=== PATIENT | male | born 1970 | race Caucasian/White ===

== ENCOUNTER 2021-09-11 10:37 | Observation (INO) ==
[2021-09-11] MEDS ORDERED: SODIUM CHLORIDE 0.9% 1000ML 1,000 ML IV SCH (11:30)
[2021-09-11] MEDS ORDERED: OPTIRAY 320 125ml IV ONE (11:40)
[2021-09-11 11:44] LABS: Basophils # (auto) 0.02 K/uL (0-0.2); Basophils % (auto) 0.3 %; Eosinophils # (auto) 0.28 K/uL (0-0.5); Eosinophils % (auto) 3.9 %; Hematocrit (blood only) 44.5 % (42-52); Hemoglobin 15.8 g/dL (14.0-18.0); Immature Granulocytes # (auto) 0.02 K/uL (0.00-0.02); Immature Granulocytes % (auto) 0.3 %; Lymphocytes # (auto) 2.57 K/uL (1.2-3.4); Lymphocytes % (auto) 35.4 %; Mean Corpuscular Hemoglobin 33.4 pg (25-34); Mean Corpuscular Hgb Conc 35.5 g/dL (32-36); Mean Corpuscular Volume 94.1 fL (80-100); Monocytes # (auto) 0.46 K/uL (0.11-0.59); Monocytes % (auto) 6.3 %; Neutrophils % (auto) 53.8 %; Platelet Count 331 K/uL (130-400); RDW Coefficient of Variation 12.5 % (11.5-14.5); RDW Standard Deviation 43.5 fL (36.4-46.3); Red Blood Count 4.73 M/uL (4.7-6.1); White Blood Count 7.25 K/uL (4.8-10.8)
--- NOTE | 2021-09-11 11:44 | CT Scan Report ---
CT head/brain wo con CLINICAL HISTORY: Stroke Like Symptoms . Dizziness and left-sided weakness COMPARISON STUDY: No previous studies for comparison. CT DOSE: 1746.46 mGy.cm TECHNIQUE: Standard CT of the Brain was performed without IV contrast. A dose lowering technique was utilized adhering to the principles of ALARA. FINDINGS: Extraaxial space: There is no evidence for subdural hematoma. There are no extra-axial fluid collecti ons. Ventricles and cisterns: The ventricles are normal in size and configuration. There is no evidence f or midline shift or mass effect. Parenchyma: There is no subarachnoid or intraparenchymal hemorrhage. There is no evidence for an acu te infarct or cerebral edema. There is homogeneous attenuation of the brain parenchyma. There are no gross mass lesions. Osseous structures: There is no evidence for an acute fracture. The visualized paranasal sinuses are clear. The mastoid air cells are clear bilaterally. Soft tissues: There is no evidence for focal soft tissue swelling. IMPRESSION: No acute intracerebral pathology. ACT 112: Negative or not required by law. Electronically signed by: Paras Bass M.D. 09/11/2021 11:43 AM
--- NOTE | 2021-09-11 11:52 | Emergency Department Note ---
Impression & Plan TIA (transient ischemic attack), Abnormal EKG ED Provider Note NAME: KAREN MENJIVAR AGE: 50 SEX: M : 1970 ARRIVES VIA: Ambulance INFORMANT: Patient, the patient's significant other ED PROVIDER(S): Ho Calvo DO CHIEF COMPLAINT: Left-sided numbness HPI: The patient is a 50-year-old male who presented to the emergency department for an evaluation of neurologic symptoms. The patient arrived via ALS. The patient states that he was in his normal state of health this morning. He went to work at approximately 6 AM. He works at [employer]. The patient states that he did not feel right initially started with some dizziness and just not feeling well. He started noticing that his left upper extremity did not feel right he states it was a tingling sensation. He started noticing this into his left shoulder as well as into his chest. He also noticed a metallic taste in his mouth. He then started noticing that his left lower extremity was numb as well. He denies having any headaches. He said no fever or cough. He denies having any abdominal pain. He is never had similar symptoms in the past. He initially was starting to drive home but then the symptoms became worse and he called 911. The patient arrived via ALS. The patient does have a history of hypertension. He has been compliant with his outpatient medications. The patient presented with his significant other who also produces part of the history and states his voice seems off and he seems to be confused at times. ROS: See above HPI for pertinent positives & negatives. A total of 10 systems reviewed and were otherwise negative. PAST MEDICAL HISTORY: See Below PAST SURGICAL HISTORY: See Below FAMILY HISTORY: See Below SOCIAL HISTORY: See Below HOME MEDICATIONS: See Below ALLERGIES: See Below VITALS: See Below PHYSICAL EXAMINATION: GENERAL: The patient is awake and alert. He is somewhat anxious appearing. EYES: The conjunctivae are clear. The pupils are round and reactive. EARS, NOSE, MOUTH AND THROAT: The nose is without any evidence of any deformity. NECK: The neck is nontender and supple. RESPIRATORY: Normal respiratory effort is noted there is no evidence of wheezing rhonchi or rales CARDIOVASCULAR: Regular rate and rhythm noted there no murmurs rubs or gallops normal S1 normal S2. GASTROINTESTINAL: The abdomen is soft. Abdomen is nontender. MUSCULOSKELETAL/EXTREMITIES: There is no evidence of gross deformity full range of motion is noted in the hips and shoulders. SKIN: There is no obvious evidence of any rash. There are no petechiae, pallor or cyanosis noted. NEUROLOGIC: Patient is awake alert and oriented x3 strength is symmetric patellar reflexes are 2+ bilaterally. Job Forwarder strength was symmetric. There is no drift in the upper extremities. No facial droop was noted. MEDICAL DECISION MAKING: The patient is a 50-year-old male who presented to the emergency department for an evaluation of strokelike symptoms. The patient was experiencing unilateral neurologic symptoms which were waxing and waning. He also had some dizziness. He had some discomfort or some sensation across the left anterior chest. There is concerned that this could be related to the patient's presentation as well. The patient was made a stroke alert upon arrival. His NIH was low but given his age and his other symptoms he was made a stroke alert. He was not a candidate for thrombolytics as he was outside that window but given the possibility of large vessel occlusion he was evaluated by the [facility] telestroke neurologist. The patient was reevaluated multiple times. His condition continued to improve. He was given aspirin in the emergency department. I discussed patient's laboratory and radiographic studies with him. I also discussed his case with the on-call [facility] hospitalist group. They have agreed to evaluate the patient in the emergency department for further management and disposition. Triage Nursing notes reviewed. Prior medical records reviewed Vital Signs: reviewed and remarkable for no significant abnormalities Differential diagnosis: Infection, dehydration, metabolic abnormality, hypo/hyperglycemia, electrolyte disturbance, anemia, hypoxia, cardiac sources, intracerebral event, toxicologic, neurologic, as well as other pathologies. ER treatment provided: See below Diagnostics interpreted by me: ECG: EKG was obtained in the emergency department. My interpretation is normal sinus rhythm at 91 bpm. There is no ectopy. There is no acute ST segment abnormalities noted. Inferior Q waves were noted. No previous tracing was available. Cardiac Monitoring: An order was placed for continuous cardiac monitoring. The monitor shows a rate of 86 bpm with sinus rhythm. Laboratory studies: As stated above and show below. Imaging studies: See below Consultation(s): 1150: I discussed this case with Dr Patton with [facility] telestroke. I discussed this case with Kitty who is on for the [facility] hospitalist group. They will evaluate the patient in the emergency department. Past Med/Surg History Medical History (Updated 09/11/21 @ 17:44 by Ho Calvo DO) Hypertension Social History Smoking Status: Never smoker Tobacco Type: Smokeless Tobacco (Dip or Chew) Do You Dip or Chew Tobacco: Yes; Tobacco Cessation Education Requested by Patient: No Hx Alcohol Use: Yes Alcohol type: beer Hx Substance Use: No Communication Ability: [employer] Required: No Beliefs That Will Affect Care: None Current Living Situation: Family Feels Safe at Home: Yes Safety Concerns: Feels Safe At This Time Assistive Devices: None Allergies Allergies Allergy/AdvReac Type Severity Reaction Status Date / Time [id number] Reductase AdvReac Intermediate Back Pain Unverified 09/11/21 14:04 Inhibitor Home Meds Home Medications Medication Instructions Recorded Confirmed ergocalciferol (vitamin D2) 1,250 50,000 unit PO 2XWK 09/11/21 09/11/21 mcg (50,000 unit) capsule (Vitamin D2) lisinopril 40 mg tablet 40 mg PO QAM 09/11/21 09/11/21 Results & Data (ED) Vital Signs Vital Signs - 24 hr 09/11/21 10:32 09/11/21 10:56 09/11/21 11:00 Temperature 36.8 C Temperature Source Oral Pulse Rate 98 H 92 H 115 H Pulse Rate from SpO2 Sensor 92 H Pulse Rhythm Regular Pulse Strength Normal Respiratory Rate 16 28 H 19 Respiratory Effort / Characteristics Non-Labored Respiratory Depth Normal Blood Pressure 162/99 H Blood Pressure Mean 120 Pulse Oximetry 97 96 Oxygen Delivery Method Room Air Sepsis Recent Fever Within 48 Hours No Sepsis New/Unexplained Change in Mental Status No Sepsis Action Taken by Nursing No Action Required 09/11/21 11:05 09/11/21 11:10 09/11/21 11:20 Temperature Temperature Source Pulse Rate 102 H 96 H 100 H Pulse Rate from SpO2 Sensor 101 H 97 H 99 H Pulse Rhythm Pulse Strength Respiratory Rate 20 18 27 H Respiratory Effort / Characteristics Respiratory Depth Blood Pressure 162/99 H Blood Pressure Mean 120 Pulse Oximetry 96 95 98 Oxygen Delivery Method Sepsis Recent Fever Within 48 Hours Sepsis New/Unexplained Change in Mental Status Sepsis Action Taken by Nursing 09/11/21 11:42 09/11/21 11:43 09/11/21 11:50 Temperature Temperature Source Pulse Rate 102 H 91 H 102 H Pulse Rate from SpO2 Sensor 89 100 H Pulse Rhythm Pulse Strength Respiratory Rate 11 L 23 17 Respiratory Effort / Characteristics Respiratory Depth Blood Pressure 169/92 H Blood Pressure Mean 117 Pulse Oximetry 96 96 Oxygen Delivery Method Sepsis Recent Fever Within 48 Hours Sepsis New/Unexplained Change in Mental Status Sepsis Action Taken by Nursing 09/11/21 12:00 09/11/21 12:10 09/11/21 12:20 Temperature Temperature Source Pulse Rate 90 95 H 88 Pulse Rate from SpO2 Sensor 89 95 H 91 H Pulse Rhythm Pulse Strength Respiratory Rate 20 28 H 20 Respiratory Effort / Characteristics Respiratory Depth Blood Pressure 144/90 H Blood Pressure Mean 108 Pulse Oximetry 96 96 96 Oxygen Delivery Method Sepsis Recent Fever Within 48 Hours Sepsis New/Unexplained Change in Mental Status Sepsis Action Taken by Nursing 09/11/21 12:30 09/11/21 12:40 09/11/21 12:50 Temperature Temperature Source Pulse Rate 99 H 93 H 91 H Pulse Rate from SpO2 Sensor 100 H 92 H 92 H Pulse Rhythm Pulse Strength Respiratory Rate 29 H 29 H 27 H Respiratory Effort / Characteristics Respiratory Depth Blood Pressure 120/98 Blood Pressure Mean 105 Pulse Oximetry 97 95 96 Oxygen Delivery Method Sepsis Recent Fever Within 48 Hours Sepsis New/Unexplained Change in Mental Status Sepsis Action Taken by Nursing 09/11/21 13:00 09/11/21 13:10 09/11/21 13:20 Temperature Temperature Source Pulse Rate 97 H 88 95 H Pulse Rate from SpO2 Sensor 96 H 89 94 H Pulse Rhythm Pulse Strength Respiratory Rate 16 18 31 H Respiratory Effort / Characteristics Respiratory Depth Blood Pressure 120/89 Blood Pressure Mean 99 Pulse Oximetry 97 96 95 Oxygen Delivery Method Sepsis Recent Fever Within 48 Hours Sepsis New/Unexplained Change in Mental Status Sepsis Action Taken by [facility] Medications Current Medication List: was personally reviewed by me Laboratory Data Attestation: I reviewed the patient's lab results. Result diagrams: 09/11/21 10:56 09/11/21 10:56 Lab Results 09/11/21 09/11/21 09/11/21 Range/Units 10:56 10:56 10:56 WBC 7.25 (4.8-10.8) K/uL RBC 4.73 (4.7-6.1) M/uL Hgb 15.8 (14.0-18.0) g/dL Hct 44.5 (42-52) % MCV 94.1 (80-100) fL MCH 33.4 (25-34) pg MCHC 35.5 (32-36) g/dL RDW Std Deviation 43.5 (36.4-46.3) fL RDW Coeff of Gerardo 12.5 (11.5-14.5) % Plt Count 331 (130-400) K/uL MPV 10.0 (7.4-10.4) fL Immature Gran % (Auto) 0.3 % Neut % (Auto) 53.8 % Lymph % (Auto) 35.4 % Rapides % (Auto) 6.3 % Eos % (Auto) 3.9 % Baso % (Auto) 0.3 % Neut # (Auto) 3.90 (1.4-6.5) K/uL Lymph # (Auto) 2.57 (1.2-3.4) K/uL Rapides # (Auto) 0.46 (0.11-0.59) K/uL Eos # (Auto) 0.28 (0-0.5) K/uL Baso # (Auto) 0.02 (0-0.2) K/uL Immature Gran # (Auto) 0.02 (0.00-0.02) K/uL PT 10.1 (9.0-12.0) Seconds INR 1.0 (0.9-1.1) APTT 26.0 (21.0-31.0) Seconds PTT Ratio 1.0 Sodium 136 (136-145) mmol/L Potassium 3.8 (3.5-5.1) mmol/L Chloride 100 (98-107) mmol/L Carbon Dioxide 24 (21-32) mmol/L Anion Gap 12 H (3-11) BUN 15 (6-23) mg/dl Creatinine 0.93 (0.6-1.4) mg/dl Est Cr Clr Drug Dosing Not Reportable Est GFR ( Amer) 110.6 ml/min Est GFR (Non-Af Amer) 95.4 ml/min BUN/Creatinine Ratio 16.1 (10-20) Glucose 116 H (70-99(Fasting)) mg/dl Calcium 9.6 (8.5-10.1) mg/dl Magnesium 1.7 (1.7-2.4) mg/dl Total Bilirubin 0.5 (0.2-1.0) mg/dl AST 19 (13-39) U/L ALT 33 (7-52) U/L Alkaline Phosphatase 57 (34-104) U/L Troponin I < 0.03 (0-0.04) ng/ml Total Protein 7.7 (6.0-8.3) gm/dl Albumin 4.7 (3.4-5.0) gm/dl Globulin 3.0 (2.5-4.0) gm/dl Albumin/Globulin Ratio 1.6 (0.9-2) SARS-CoV-2, RNA, NAAT (NEGATIVE) 09/11/21 Range/Units 13:11 WBC (4.8-10.8) K/uL RBC (4.7-6.1) M/uL Hgb (14.0-18.0) g/dL Hct (42-52) % MCV (80-100) fL MCH (25-34) pg MCHC (32-36) g/dL RDW Std Deviation (36.4-46.3) fL RDW Coeff of Gerardo (11.5-14.5) % Plt Count (130-400) K/uL MPV (7.4-10.4) fL Immature Gran % (Auto) % Neut % (Auto) % Lymph % (Auto) % Rapides % (Auto) % Eos % (Auto) % Baso % (Auto) % Neut # (Auto) (1.4-6.5) K/uL Lymph # (Auto) (1.2-3.4) K/uL Rapides # (Auto) (0.11-0.59) K/uL Eos # (Auto) (0-0.5) K/uL Baso # (Auto) (0-0.2) K/uL Immature Gran # (Auto) (0.00-0.02) K/uL PT (9.0-12.0) Seconds INR (0.9-1.1) APTT (21.0-31.0) Seconds PTT Ratio Sodium (136-145) mmol/L Potassium (3.5-5.1) mmol/L Chloride (98-107) mmol/L Carbon Dioxide (21-32) mmol/L Anion Gap (3-11) BUN (6-23) mg/dl Creatinine (0.6-1.4) mg/dl Est Cr Clr Drug Dosing Est GFR ( Amer) ml/min Est GFR (Non-Af Amer) ml/min BUN/Creatinine Ratio (10-20) Glucose (70-99(Fasting)) mg/dl Calcium (8.5-10.1) mg/dl Magnesium (1.7-2.4) mg/dl Total Bilirubin (0.2-1.0) mg/dl AST (13-39) U/L ALT (7-52) U/L Alkaline Phosphatase (34-104) U/L Troponin I (0-0.04) ng/ml Total Protein (6.0-8.3) gm/dl Albumin (3.4-5.0) gm/dl Globulin (2.5-4.0) gm/dl Albumin/Globulin Ratio (0.9-2) SARS-CoV-2, RNA, NAAT NEGATIVE (NEGATIVE) Administered Medications Discontinued Medications Aspirin (Aspirin Chew 324 Mg) 324 mg PO NOW STA Stop: 09/11/21 13:02 Last Admin: 09/11/21 13:19 Dose: 324 mg Documented by: [id number] Sodium Chloride (Nss 1000ml) 1,000 mls @ 50 mls/hr IV .Q20H EZEQUIEL Stop: 10/11/21 11:29 Last Infusion: 09/11/21 16:17 Dose: 0 mls/hr Documented by: [id number] Admin: 09/11/21 11:56 Dose: 50 mls/hr Documented by: [id number] Ioversol (Optiray 320 125ml) 120 ml IV ONCE ONE Stop: 09/11/21 11:41 Last Admin: 09/11/21 11:34 Dose: 120 ml Documented by: [id number] Imaging Data Radiologist's Impression: Chest X-Ray 09/11/21 11:23 XR chest 1V portable CLINICAL HISTORY: Stroke Like Symptoms. Dizziness. Evaluate cardiopulmonary status COMPARISON STUDY: No previous studies for comparison. TECHNIQUE: 1 view of the chest FINDINGS: Single frontal view of the chest demonstrates the cardiomediastinal silhouette to be within normal limits. The lungs are clear of alveolar opacities. There is no evidence for pleural effusion. There is no evidence for vascular congestion. There is no acute osseous pathology. IMPRESSION: 1. No acute cardiopulmonary disease. ACT 112: Negative or not required by law. Electronically signed by: Paras Bass M.D. 09/11/2021 11:[address] 09/11/21 11:23 CT head/brain wo con CLINICAL HISTORY: Stroke Like Symptoms . Dizziness and left-sided weakness COMPARISON STUDY: No previous studies for comparison. CT DOSE: 1746.46 mGy.cm TECHNIQUE: Standard CT of the Brain was performed without IV contrast. A dose lowering technique was utilized adhering to the principles of ALARA. FINDINGS: Extraaxial space: There is no evidence for subdural hematoma. There are no extra-axial fluid collections. Ventricles and cisterns: The ventricles are normal in size and configuration. There is no evidence for midline shift or mass effect. Parenchyma: There is no subarachnoid or intraparenchymal hemorrhage. There is no evidence for an acute infarct or cerebral edema. There is homogeneous attenuation of the brain parenchyma. There are no gross mass lesions. Osseous structures: There is no evidence for an acute fracture. The visualized paranasal sinuses are clear. The mastoid air cells are clear bilaterally. Soft tissues: There is no evidence for focal soft tissue swelling. IMPRESSION: No acute intracerebral pathology. ACT 112: Negative or not required by law. Electronically signed by: Paras Bass M.D. 09/11/2021 11:43 AM Head CTA 09/11/21 11:23 CT angio head w con, CT angio neck with con CLINICAL HISTORY: Stroke Like Symptoms TECHNIQUE: CT angiography of the head and neck was performed following intravenous administration of iodinated contrast. Coronal and sagittal MIPS were obtained from the axial data set and were submitted for review. Automated dose lowering techniques and/or adjustment according to patient size were utilized for this examination. All measurements were calculated based on NASCET criteria. Comparison: Comparison is made to CT head 07/11/2022 FINDINGS: CT head: There is no acute intracranial hemorrhage or evidence of acute territorial infarction. No shift of the midline structures, mass effect, or extra-axial abnormalities are shown. Lungs and soft tissues are unremarkable. CTA Neck: A 3 vessel aortic arch is shown. There is no significant atherosclerotic plaque in the aortic arch or the origins of the innominate, left common carotid, and left subclavian arteries. The common carotid, external carotid, cervical segments of the internal carotid arteries, and the cervical segments of the vertebral arteries are patent without hemodynamically significant stenosis. The left vertebral artery is dominant. CTA Head: The anterior and posterior cerebral circulations are patent. No hemodynamically significant stenosis, aneurysm, dissection, or arteriovenous malformation is shown. Atherosclerotic disease is noted. IMPRESSION: 1. No acute intracranial hemorrhage, evidence of acute territorial infarction, or other acute intracranial disease process. 2. No occlusion, hemodynamically significant stenosis, aneurysm, dissection, or arteriovenous malformation in the major intracranial arteries. 3. No occlusion, hemodynamically significant stenosis, or dissection in the major cervical arteries. Assessment of stenosis of the internal carotid arteries is based on NASCET criteria. ACT 112: Negative or not required by law. Electronically signed by: Juan Carlos Winter M.D. 09/11/2021 11:56 AM Neck CTA 09/11/21 11:23 CT angio head w con, CT angio neck with con CLINICAL HISTORY: Stroke Like Symptoms TECHNIQUE: CT angiography of the head and neck was performed following intravenous administration of iodinated contrast. Coronal and sagittal MIPS were obtained from the axial data set and were submitted for review. Automated dose lowering techniques and/or adjustment according to patient size were utilized for this examination. All measurements were calculated based on NASCET criteria. Comparison: Comparison is made to CT head 07/11/2022 FINDINGS: CT head: There is no acute intracranial hemorrhage or evidence of acute territorial infarction. No shift of the midline structures, mass effect, or extra-axial abnormalities are shown. Lungs and soft tissues are unremarkable. CTA Neck: A 3 vessel aortic arch is shown. There is no significant atherosclerotic plaque in the aortic arch or the origins of the innominate, left common carotid, and left subclavian arteries. The common carotid, external carotid, cervical segments of the internal carotid arteries, and the cervical segments of the vertebral arteries are patent without hemodynamically significant stenosis. The left vertebral artery is dominant. CTA Head: The anterior and posterior cerebral circulations are patent. No hemodynamically significant stenosis, aneurysm, dissection, or arteriovenous malformation is shown. Atherosclerotic disease is noted. IMPRESSION: 1. No acute intracranial hemorrhage, evidence of acute territorial infarction, or other acute intracranial disease process. 2. No occlusion, hemodynamically significant stenosis, aneurysm, dissection, or arteriovenous malformation in the major intracranial arteries. 3. No occlusion, hemodynamically significant stenosis, or dissection in the major cervical arteries. Assessment of stenosis of the internal carotid arteries is based on NASCET criteria. ACT 112: Negative or not required by law. Electronically signed by: Juan Carlos Winter M.D. 09/11/2021 11:56 AM Chest CTA 09/11/21 11:25 CT angio chest PE protocol CLINICAL HISTORY: Syncopal episode with lightheadedness and dizziness. Evaluate for pulmonary embolus. COMPARISON STUDY: None CT DOSE: TECHNIQUE: CT Angio of the chest was performed.followed by image post processing with coronal, and sagittal MIP reformats. Contrast Volume: Optiray 320, 120 ml FINDINGS: Vasculature: There is homogeneous perfusion of the pulmonary vasculature bilaterally. No intraluminal filling defects or evidence for pulmonary embolus is seen. Airway: The airway is clear. No endobronchial lesion is identified. Lungs: The lungs are clear of acute alveolar opacities, air bronchograms or pulmonary nodules. Pleura: There is no evidence for pleural effusion. There is no evidence for pneumothorax. Mediastinum: There is no evidence for pathologic adenopathy. The heart size is within normal limits. The thoracic aorta is within normal limits. There is no evidence for pericardial effusion. Upper abdomen:The adrenal glands are normal bilaterally. Osseous structures: There is no acute osseous pathology. Impression: 1. No CTA evidence for pulmonary embolus. 2. No acute chest disease. ACT 112: Negative or not required by law. Electronically signed by: Paras Bass M.D. 09/11/2021 11:51 AM Discharge Plan Visit Data Chief Complaint: Syncope (Near Syncope) Stated Complaint: DIZZINESS, TINGLING IN LEFT ARM ED Provider: Ho Calvo Discharge Problem: TIA (transient ischemic attack), Abnormal EKG Patient Disposition: Admitted As Inpatient Discharge Instructions Interventions: ED Discharge Assessment Last Done: 09/11/21 14:51
[2021-09-11 11:55] LABS: Prothrombin Time 10.1 Seconds (9.0-12.0)
[2021-09-11 11:56] LABS: Troponin I < 0.03 ng/ml (0-0.04)
--- NOTE | 2021-09-11 11:58 | CT Scan Report ---
CT angio head w con, CT angio neck with con CLINICAL HISTORY: Stroke Like Symptoms TECHNIQUE: CT angiography of the head and neck was performed following intravenous administration of iodinated contrast. Coronal and sagittal MIPS were obtained from the axial data set and were submitte d for review. Automated dose lowering techniques and/or adjustment according to patient size were ut ilized for this examination. All measurements were calculated based on NASCET criteria. Comparison: Comparison is made to CT head 07/11/2022 FINDINGS: CT head: There is no acute intracranial hemorrhage or evidence of acute territorial infarction. No sh ift of the midline structures, mass effect, or extra-axial abnormalities are shown. Lungs and soft tissues are unremarkable. CTA Neck: A 3 vessel aortic arch is shown. There is no significant atherosclerotic plaque in the aor tic arch or the origins of the innominate, left common carotid, and left subclavian arteries. The c ommon carotid, external carotid, cervical segments of the internal carotid arteries, and the cervical segments of the vertebral arteries are patent without hemodynamically significant stenosis. The left vertebral artery is dominant. CTA Head: The anterior and posterior cerebral circulations are patent. No hemodynamically significan t stenosis, aneurysm, dissection, or arteriovenous malformation is shown. Atherosclerotic disease is noted. IMPRESSION: 1. No acute intracranial hemorrhage, evidence of acute territorial infarction, or other acute intrac ranial disease process. 2. No occlusion, hemodynamically significant stenosis, aneurysm, dissection, or arteriovenous malfor mation in the major intracranial arteries. 3. No occlusion, hemodynamically significant stenosis, or dissection in the major cervical arteries. Assessment of stenosis of the internal carotid arteries is based on NASCET criteria. ACT 112: Negative or not required by law. Electronically signed by: Juan Carlos Winter M.D. 09/11/2021 11:56 AM
[2021-09-11 11:59] LABS: Alanine Aminotransferase 33 U/L (7-52); Albumin Globulin Ratio 1.6 (0.9-2); Albumin Level 4.7 gm/dl (3.4-5.0); Alkaline Phosphatase 57 U/L (34-104); Anion Gap 12 (3-11); Aspartate Aminotransferase 19 U/L (13-39); BUN Creatinine Ratio 16.1 (10-20); Bilirubin,Total 0.5 mg/dl (0.2-1.0); Blood Urea Nitrogen 15 mg/dl (6-23); Calcium 9.6 mg/dl (8.5-10.1); Carbon Dioxide 24 mmol/L (21-32); Chloride 100 mmol/L (98-107); Est GFR (African American) 110.6 ml/min; Est GFR (Non-African American) 95.4 ml/min; Glucose 116 mg/dl (70-99(Fasting)); Magnesium 1.7 mg/dl (1.7-2.4); Potassium 3.8 mmol/L (3.5-5.1); Sodium 136 mmol/L (136-145); Total Protein 7.7 gm/dl (6.0-8.3)
[2021-09-11] MEDS ORDERED: ASPIRIN CHEW 324 MG PO STA (13:01)
--- NOTE | 2021-09-11 13:19 | History & Physical Report ---
Date of Service September 11, 2021 Assessment & Plan (1) Left sided numbness: Plan: -Onset of weakness at 0800, left sided numbness/tingling with ? chest pain at 1000 -CT head--> No acute intracranial hemorrhage, evidence of acute territorial infarction, or other acute intracranial disease process. -CTA head, neck--> No occlusion, hemodynamically significant stenosis, aneurysm, dissection, or arteriovenous malformation in the major intracranial arteries, or dissection in the major cervical arteries. -MRI ordered. -Placed on observation w/ telemetry. -HbA1c, lipid panel in a.m. -PT, OT, ST to evaluate. -In the setting of ?CVA/TIA, allow permissive HTN w/ SBP < 220, DBP < 110 for first 24 hours. -Avoid hypotension, hypoglycemia. (2) Hypertension: Plan: -On lisinopril 40 mg PO daily, states BP has been high since May 2021, he has been rapidly increased from 5 mg to 40 mg lisinopril, BPs have run 200s/90s at home. -In the setting of ?CVA/TIA, allow permissive HTN w/ SBP < 220, DBP < 110 for first 24 hours. (3) Electrocardiogram abnormal: Plan: -EKG in ED today showed evidence of inferior infarct, age undetermined, otherwise NSR. No previous EKGS are available for comparison. Patient does describe some abnormal chest sensation, difficult for him to determine if this is separate from the numbness/tingling sensation in his left arm and leg. -Initial troponin was negative, trending Q6 2. -Checking lipids, A1c morning labs. -Stress exercise test ordered. -Can consider starting on statin therapy pending lipid panel. -Patient states he has had an echo and what sounds like a cardiac cath ~5 years ago at [facility], although he is not able to elaborate on what the indication was. States this was done as outpatient, he was not hospitalized when this occured. FH is significant for cardiac dz, his mother reportedly had a fatal AR in her 40s. Pt does not know his father's PMH. Plan: -SCDs ordered. History of Present Illness Chief Complaint: left sided numbness Primary Care Provider: Mati Martinez DO Patient is a 50 y/o male with a PMH of HTN who presents today with complaints of weakness and left-sided numbness. Patient notes around 8 AM this morning he felt generally weak all over and somewhat dizzy. He went about his day at work, however the symptoms persisted. He was driving home from work around 10 AM when he noticed his left arm felt heavy, numb, and "different than the rest of the body ". At this time he also felt like his vision was starting to go black, so he pulled over and called 911. Patient was transported via ambulance to [facility] and was evaluated for possible stroke, during ED evaluation he developed left leg numbness and heaviness similar to sensation he felt in his arm. Denies fever/chills, recent illness, palpitations, shortness of breath, PANTOJA, PND, nausea, vomiting, headache, blurred vision, syncopal episodes. Head CT, as well as head and neck CTA were unremarkable. Patient did verbalize resolution of symptoms during course of ED evaluation. Telestroke was consulted, hospitalist service was consulted for evaluation, recommending observation. Additionally, EKG in the ED showed Q waves in the inferior leads indicating an inferior infarct, age undetermined. No previous EKGs are available for comparison. Otherwise NSR. Patient is being treated for high blood pressure, recently had his lisinopril increased to 40 mg due to uncontrolled blood pressure with systolic blood pressures nearly 200 on home readings since May. Has been on statins some years ago, however self D/C'd them due to body myalgias. Also reports of a history of a cardiac work-up, he reports having an echo and what sounds like a cardiac catheterization ~5 years ago at [facility]. Patient is unable to elaborate on why he had these, however he states it was not done during a hospital admission. Allergies Allergy/AdvReac Type Severity Reaction Status Date / Time [id number] Reductase AdvReac Intermediate Back Pain Unverified 09/11/21 14:04 Inhibitor Home Medications Medication Instructions Recorded Confirmed Type ergocalciferol (vitamin D2) 1,250 50,000 unit PO 2XWK 09/11/21 09/11/21 History mcg (50,000 unit) capsule (Vitamin D2) lisinopril 40 mg tablet 40 mg PO QAM 09/11/21 09/11/21 History Past Med/Surg History Medical History (Updated 09/11/21 @ 14:16 by Kitty Bishop PA-C) Hypertension Social History Smoking Status: Never smoker Tobacco Type: Smokeless Tobacco (Dip or Chew) Feels Safe at Home: Yes Review of Systems Review of Systems: Constitutional: No fever, sweats or chills Eyes: No diplopia, no worsening or blurred vision ENT: normal hearing, no trouble swallowing Respiratory: No cough, sputum, dyspnea at rest or on exertion Cardiovascular: ?chest wall numbness/tingling; no tightness or palpitations Abdomen: No pain, nausea, vomiting, diarrhea or constipation Musculoskeletal: No joint pain, calf pain, swelling Neurologic: reports transient LUE and LLE numbness/tingling since this AM; no balance problems Psychiatric: No anxiety or depression Skin: No rash or itch Physical Exam Physical Exam: General: awake, alert, no apparent distress Head: Normocephalic, atraumatic ENT: PERRL, EOMI, no pharyngeal exudate, mucous membranes moist Chest: Clear to auscultation, on room air, no adventitious breath sounds Cardiac: Regular rate and rhythm, no murmur, no JVD, normal peripheral pulses, good capillary refill Abdominal: NABS x 4 quadrants, soft, nontender to palpation, no rebound, guarding or tenderness Extremities: Normal inspection, no peripheral edema or erythema, calfs nontender to palpation Psych: Normal mood and affect Neuro: NIH 0 at time of my exam, around 1400; AAO x 3, strength intact bi laterally and rated 5/5, no motor deficits, speech is clear, no peripheral sensory deficits Skin: no rash or erythema Results & Data Results & Data ([facility]) Vital Signs (Past 12 Hours) Vital Signs Temp Pulse Resp BP Pulse Ox 09/11/21 13:10 88 18 96 09/11/21 13:00 97 H 16 120/89 97 09/11/21 12:50 91 H 27 H 96 09/11/21 12:40 93 H 29 H 95 09/11/21 12:30 99 H 29 H 120/98 97 09/11/21 12:20 88 20 96 09/11/21 12:10 95 H 28 H 96 09/11/21 12:00 90 20 144/90 H 96 09/11/21 11:50 102 H 17 96 09/11/21 11:43 91 H 23 169/92 H 96 09/11/21 11:42 102 H 11 L 09/11/21 11:20 100 H 27 H 98 09/11/21 11:10 96 H 18 95 09/11/21 11:05 102 H 20 162/99 H 96 09/11/21 11:00 115 H 19 09/11/21 10:56 92 H 28 H 96 09/11/21 10:32 36.8 C 98 H 16 162/99 H 97 Laboratory Results Abnormal lab results 09/11/21 Range/Units 10:56 Anion Gap 12 H (3-11) Glucose 116 H (70-99(Fasting)) mg/dl Diagnostic Findings Chest X-Ray 09/11/21 11:23 XR chest 1V portable CLINICAL HISTORY: Stroke Like Symptoms. Dizziness. Evaluate cardiopulmonary status COMPARISON STUDY: No previous studies for comparison. TECHNIQUE: 1 view of the chest FINDINGS: Single frontal view of the chest demonstrates the cardiomediastinal silhouette to be within normal limits. The lungs are clear of alveolar opacities. There is no evidence for pleural effusion. There is no evidence for vascular congestion. There is no acute osseous pathology. IMPRESSION: 1. No acute cardiopulmonary disease. ACT 112: Negative or not required by law. Electronically signed by: Paras Bass M.D. 09/11/2021 11:[address] 09/11/21 11:23 CT head/brain wo con CLINICAL HISTORY: Stroke Like Symptoms . Dizziness and left-sided weakness COMPARISON STUDY: No previous studies for comparison. CT DOSE: 1746.46 mGy.cm TECHNIQUE: Standard CT of the Brain was performed without IV contrast. A dose lowering technique was utilized adhering to the principles of ALARA. FINDINGS: Extraaxial space: There is no evidence for subdural hematoma. There are no extra-axial fluid collections. Ventricles and cisterns: The ventricles are normal in size and configuration. There is no evidence for midline shift or mass effect. Parenchyma: There is no subarachnoid or intraparenchymal hemorrhage. There is no evidence for an acute infarct or cerebral edema. There is homogeneous attenuation of the brain parenchyma. There are no gross mass lesions. Osseous structures: There is no evidence for an acute fracture. The visualized paranasal sinuses are clear. The mastoid air cells are clear bilaterally. Soft tissues: There is no evidence for focal soft tissue swelling. IMPRESSION: No acute intracerebral pathology. ACT 112: Negative or not required by law. Electronically signed by: Paras Bass M.D. 09/11/2021 11:43 AM Head CTA 09/11/21 11:23 CT angio head w con, CT angio neck with con CLINICAL HISTORY: Stroke Like Symptoms TECHNIQUE: CT angiography of the head and neck was performed following intravenous administration of iodinated contrast. Coronal and sagittal MIPS were obtained from the axial data set and were submitted for review. Automated dose lowering techniques and/or adjustment according to patient size were utilized for this examination. All measurements were calculated based on NASCET criteria. Comparison: Comparison is made to CT head 07/11/2022 FINDINGS: CT head: There is no acute intracranial hemorrhage or evidence of acute territorial infarction. No shift of the midline structures, mass effect, or extra-axial abnormalities are shown. Lungs and soft tissues are unremarkable. CTA Neck: A 3 vessel aortic arch is shown. There is no significant atherosclerotic plaque in the aortic arch or the origins of the innominate, left common carotid, and left subclavian arteries. The common carotid, external carotid, cervical segments of the internal carotid arteries, and the cervical segments of the vertebral arteries are patent without hemodynamically significant stenosis. The left vertebral artery is dominant. CTA Head: The anterior and posterior cerebral circulations are patent. No hemodynamically significant stenosis, aneurysm, dissection, or arteriovenous malformation is shown. Atherosclerotic disease is noted. IMPRESSION: 1. No acute intracranial hemorrhage, evidence of acute territorial infarction, or other acute intracranial disease process. 2. No occlusion, hemodynamically significant stenosis, aneurysm, dissection, or arteriovenous malformation in the major intracranial arteries. 3. No occlusion, hemodynamically significant stenosis, or dissection in the major cervical arteries. Assessment of stenosis of the internal carotid arteries is based on NASCET criteria. ACT 112: Negative or not required by law. Electronically signed by: Juan Carlos Winter M.D. 09/11/2021 11:56 AM Neck CTA 09/11/21 11:23 CT angio head w con, CT angio neck with con CLINICAL HISTORY: Stroke Like Symptoms TECHNIQUE: CT angiography of the head and neck was performed following intravenous administration of iodinated contrast. Coronal and sagittal MIPS were obtained from the axial data set and were submitted for review. Automated dose lowering techniques and/or adjustment according to patient size were utilized for this examination. All measurements were calculated based on NASCET criteria. Comparison: Comparison is made to CT head 07/11/2022 FINDINGS: CT head: There is no acute intracranial hemorrhage or evidence of acute territorial infarction. No shift of the midline structures, mass effect, or extra-axial abnormalities are shown. Lungs and soft tissues are unremarkable. CTA Neck: A 3 vessel aortic arch is shown. There is no significant atherosclerotic plaque in the aortic arch or the origins of the innominate, left common carotid, and left subclavian arteries. The common carotid, external carotid, cervical segments of the internal carotid arteries, and the cervical segments of the vertebral arteries are patent without hemodynamically significant stenosis. The left vertebral artery is dominant. CTA Head: The anterior and posterior cerebral circulations are patent. No hemodynamically significant stenosis, aneurysm, dissection, or arteriovenous malformation is shown. Atherosclerotic disease is noted. IMPRESSION: 1. No acute intracranial hemorrhage, evidence of acute territorial infarction, or other acute intracranial disease process. 2. No occlusion, hemodynamically significant stenosis, aneurysm, dissection, or arteriovenous malformation in the major intracranial arteries. 3. No occlusion, hemodynamically significant stenosis, or dissection in the major cervical arteries. Assessment of stenosis of the internal carotid arteries is based on NASCET criteria. ACT 112: Negative or not required by law. Electronically signed by: Juan Carlos Winter M.D. 09/11/2021 11:56 AM Chest CTA 09/11/21 11:25 CT angio chest PE protocol CLINICAL HISTORY: Syncopal episode with lightheadedness and dizziness. Evaluate for pulmonary embolus. COMPARISON STUDY: None CT DOSE: TECHNIQUE: CT Angio of the chest was performed.followed by image post processing with coronal, and sagittal MIP reformats. Contrast Volume: Optiray 320, 120 ml FINDINGS: Vasculature: There is homogeneous perfusion of the pulmonary vasculature bilaterally. No intraluminal filling defects or evidence for pulmonary embolus is seen. Airway: The airway is clear. No endobronchial lesion is identified. Lungs: The lungs are clear of acute alveolar opacities, air bronchograms or pulmonary nodules. Pleura: There is no evidence for pleural effusion. There is no evidence for pneumothorax. Mediastinum: There is no evidence for pathologic adenopathy. The heart size is within normal limits. The thoracic aorta is within normal limits. There is no evidence for pericardial effusion. Upper abdomen:The adrenal glands are normal bilaterally. Osseous structures: There is no acute osseous pathology. Impression: 1. No CTA evidence for pulmonary embolus. 2. No acute chest disease. Medications Administered Current Medications Sodium Chloride (Nss 1000ml) 1,000 mls @ 50 mls/hr IV .Q20H EZEQUIEL Stop: 10/11/21 11:29 Last Admin: 09/11/21 11:56 Dose: 50 mls/hr Documented by: ECG Additional Comments: Normal sinus rhythm Left axis deviation Inferior infarct , age undetermined Abnormal ECG No previous ECGs available Code Status & VTE Plan Code Status Full Code VTE Prophylaxis Plan VTE Prophylaxis will be ordered: Yes Supervising Physician Co-Signing Physician Notes I have personally evaluated and examined this patient. I agree with assessment and plan of Shaheen Bishop PA-C. EKG with inferior Q. Hx of prior cardiac cath, unclear why. Heart score 2. CN 2-12 intact, no pronator drift normal finger nose/ heel mahajan. Will obtain ECHO +/- stress component. The clinical history most consistent with non-cardiac near syncope. CTA head/neck unremarkable, will further evaluate possible cardiac causes. PG Care Time/CCT Total # of Minutes Spent Total Time Spent with Patient: Total time spent is greater than 50% in coordination of care (as documented) at patient's floor/unit and/or counseling patient: Coding Level of Care Code INT OBSERVATION CARE 70M LVL 3 Diagnoses Hypertension I10 Left sided numbness R20.0 Electrocardiogram abnormal R94.31
--- NOTE | 2021-09-11 14:33 | Electrocardiogram Report ---
Test Reason : Blood Pressure : / mmHG Vent. Rate : 091 BPM Atrial Rate : 091 BPM P-R Int : 148 ms QRS Dur : 102 ms QT Int : 350 ms P-R-T Axes : 063 -39 051 degrees QTc Int : 430 ms Normal sinus rhythm Left axis deviation Old Inferior infarct Abnormal ECG No previous ECGs available Confirmed by Juliocesar Bose ([id number]) on 09/11/2021 2:33:20 PM Referred By: SELF Confirmed By:Juliocesar Bose
[2021-09-11] MEDS ORDERED: ACETAMINOPHEN 325 MG TAB PO PRN (16:01)
[2021-09-11] MEDS ORDERED: ONDANSETRON INJ 2 MG/ML 2 ML VIAL IV PRN (16:01)
[2021-09-11] MEDS ORDERED: POLYETHYLENE (MIRALAX) 17 GM PACK PO PRN (16:01)
[2021-09-11] MEDS ORDERED: ENOXAPARIN INJ 40 MG/0.4 ML SYR SQ SCH (16:15)
--- NOTE | 2021-09-11 16:19 | XCELERA ---
[id number]
--- NOTE | 2021-09-11 19:15 | Magnetic Resonance Report ---
MRI OF THE BRAIN WITHOUT IV CONTRAST CLINICAL HISTORY: Strokelike symptoms. Left-sided weakness. COMPARISON STUDY: CT of the brain dated 09/11/2021. TECHNIQUE: MRI of the brain was performed utilizing various T1 and T2-weighted sequences in the axial , sagittal, and coronal planes. IV contrast was not administered for this examination. FINDINGS: Brain parenchyma: The brain parenchyma is normal in appearance. There is no hemorrhage or mass effect . There is no restricted diffusion to suggest acute ischemia. Edward-white matter differentiation is pr eserved. No extra-axial fluid collection is seen. The cerebellar tonsils are normal in configuration. Ventricles, sulci, and cisterns: Normal in configuration. Pituitary and sella: Unremarkable. Intracranial vasculature: Normal flow voids are maintained at the skull base. Orbits: The bony orbits are grossly intact. Orbital contents are normal in appearance. Sinuses and mastoids: There is evidence of previous paranasal sinus surgery. Trace mucosal thickening is seen within the right maxillary antrum. The remaining paranasal sinuses are clear, as are the mas toid air cells. Calvarium: Unremarkable. Cervical cord: Partially visualized cervical spinal cord is normal in morphology and signal intensity . IMPRESSION: No acute intracranial abnormality. ACT 112: Negative or not required by law. Electronically signed by: Dalton Hagen M.D. 09/11/2021 7:14 PM
[2021-09-12 08:32] LABS: Basophils # (auto) 0.02 K/uL (0-0.2); Basophils % (auto) 0.3 %; Eosinophils # (auto) 0.27 K/uL (0-0.5); Eosinophils % (auto) 3.6 %; Hematocrit (blood only) 45.1 % (42-52); Immature Granulocytes # (auto) 0.03 K/uL (0.00-0.02); Immature Granulocytes % (auto) 0.4 %; Lymphocytes # (auto) 2.54 K/uL (1.2-3.4); Lymphocytes % (auto) 33.5 %; Mean Corpuscular Hemoglobin 33.5 pg (25-34); Mean Corpuscular Hgb Conc 35.5 g/dL (32-36); Mean Corpuscular Volume 94.5 fL (80-100); Mean Platelet Volume 9.9 fL (7.4-10.4); Monocytes # (auto) 0.63 K/uL (0.11-0.59); Monocytes % (auto) 8.3 %; Neutrophils # (auto) 4.09 K/uL (1.4-6.5); Neutrophils % (auto) 53.9 %; Platelet Count 315 K/uL (130-400); RDW Coefficient of Variation 12.8 % (11.5-14.5); RDW Standard Deviation 44.3 fL (36.4-46.3); Red Blood Count 4.77 M/uL (4.7-6.1); White Blood Count 7.58 K/uL (4.8-10.8)
[2021-09-12 08:49] LABS: Estimated Average Glucose 114 mg/dl; Hemoglobin A1C 5.6 % (4.5-5.6)
[2021-09-12 08:57] LABS: Anion Gap 8 (3-11); BUN Creatinine Ratio 16.2 (10-20); Blood Urea Nitrogen 17 mg/dl (6-23); Calcium 9.5 mg/dl (8.5-10.1); Carbon Dioxide 25 mmol/L (21-32); Chloride 103 mmol/L (98-107); Chol HDL Ratio 5.3 (0-5); Cholesterol 213 mg/dl (0-200); Est GFR (African American) 95.5 ml/min; Est GFR (Non-African American) 82.4 ml/min; Glucose 100 mg/dl (70-99(Fasting)); HDL Cholesterol 40 mg/dl; LDL Cholesterol Calculated 145 mg/dl; Potassium 4.4 mmol/L (3.5-5.1); Sodium 136 mmol/L (136-145); Triglycerides 139 mg/dl (0-150); VLDL Cholesterol 28 mg/dl (0-30)
--- NOTE | 2021-09-12 18:38 | Discharge Summary ---
Date of Service September 12, 2021 Admission HPI Per Admitting Provider Patient is a 50 y/o male with a PMH of HTN who presents today with complaints of weakness and left-sided numbness. Patient notes around 8 AM this morning he felt generally weak all over and somewhat dizzy. He went about his day at work, however the symptoms persisted. He was driving home from work around 10 AM when he noticed his left arm felt heavy, numb, and "different than the rest of the body ". At this time he also felt like his vision was starting to go black, so he pulled over and called 911. Patient was transported via ambulance to [facility] and was evaluated for possible stroke, during ED evaluation he developed left leg numbness and heaviness similar to sensation he felt in his arm. Denies fever/chills, recent illness, palpitations, shortness of breath, PANTOJA, PND, nausea, vomiting, headache, blurred vision, syncopal episodes. Head CT, as well as head and neck CTA were unremarkable. Patient did verbalize resolution of symptoms during course of ED evaluation. Telestroke was consulted, hospitalist service was consulted for evaluation, recommending observation. Additionally, EKG in the ED showed Q waves in the inferior leads indicating an inferior infarct, age undetermined. No previous EKGs are available for comparison. Otherwise NSR. Patient is being treated for high blood pressure, recently had his lisinopril increased to 40 mg due to uncontrolled blood pressure with systolic blood pressures nearly 200 on home readings since May. Has been on statins some years ago, however self D/C'd them due to body myalgias. Also reports of a history of a cardiac work-up, he reports efren jj an echo and what sounds like a cardiac catheterization ~5 years ago at [facility]. Patient is unable to elaborate on why he had these, however he states it was not done during a hospital admission. Principal Diagnosis 1. Near syncope 2. Left-sided weakness 3. HTN Discharge Exam General: Resting comfortably in his hospital. NAD. HEENT: Head is AT/NC. Buccal mucosa is moist and pink Neck: No JVD. Negative hepatojugular reflex Cardiac: RRR without M/G/R Lungs: CTA without W/R/R Abdomen: Normoactive X4. Soft and nontender in all quadrants. Extremities: No peripheral clubbing cyanosis or edema Neuro: A&O X4. Cranial nerves II through XII are grossly intact. No focal neuro deficits Skin: No obvious skin lesions or rashes Psych: Appropriate affect. Pleasant and cooperative Discharge Data Allergies Allergy/AdvReac Type Severity Reaction Status Date / Time [id number]-[id number] Reductase AdvReac Intermediate Back Pain Unverified 09/11/21 14:04 Inhibitor Consultations 09/11/21 13:31 ED Decision to Admit Stat Ordered Studies 09/11/21 11:23 CT angio head w con Stat CT angio neck with con Stat CT head/brain wo con Stat CT head: There is no acute intracranial hemorrhage or evidence of acute territorial infarction. No shift of the midline structures, mass effect, or extra-axial abnormalities are shown. Lungs and soft tissues are unremarkable. CTA Neck: A 3 vessel aortic arch is shown. There is no significant atherosclerotic plaque in the aortic arch or the origins of the innominate, left common carotid, and left subclavian arteries. The common carotid, external carotid, cervical segments of the internal carotid arteries, and the cervical segments of the vertebral arteries are patent without hemodynamically significant stenosis. The left vertebral artery is dominant. CTA Head: The anterior and posterior cerebral circulations are patent. No hemodynamically significant stenosis, aneurysm, dissection, or arteriovenous malformation is shown. Atherosclerotic disease is noted. IMPRESSION: 1. No acute intracranial hemorrhage, evidence of acute territorial infarction, or other acute intracranial disease process. 2. No occlusion, hemodynamically significant stenosis, aneurysm, dissection, or arteriovenous malformation in the major intracranial arteries. 3. No occlusion, hemodynamically significant stenosis, or dissection in the major cervical arteries. 09/11/21 11:25 CT angio chest PE protocol Stat Impression: 1. No CTA evidence for pulmonary embolus. 2. No acute chest disease. 09/11/21 16:01 MR brain wo con Routine IMPRESSION: No acute intracranial abnormality. Hospital Course (1) Left sided numbness: 50-year-old white male with an underlying past medical history of HTN and chronic tobacco abuse presented to the ED complaining of near syncope and left- sided numbness. * Occurred while driving. Had to conductor pullman and call 911. * Work-up in the ED unremarkable --CMP, CBC, TSH, troponin all normal --Covid: Negative --CT of the head: No acute process -- CTA of the head and neck: No acute process. Mild atherosclerotic disease noted -- CTA of the chest: No acute cardiopulmonary process --Stress echo: normal * He did not have a CVA. In talking with the patient, cannot completely rule out a TIA. I do believe the biggest precipitating factor was the quick up titration of his lisinopril from 5 mg to 40 mg over a 2-week timeframe. * At any rate, he does have atherosclerotic disease seen on imaging, he uses smokeless tobacco, he has a family history of coronary and cerebral artery disease, he is a male and has high cholesterol. I do believe he would benefit from a baby aspirin taken once daily * lipid panel assessed for risk stratification. His 10-year risk is 4.8%. With statin therapy, this is reduced to 2.6%. He has an intolerance to statins in the past and would prefer dietary changes and lifestyle modifications. Should have lipid panel reassessed in 3 to 6 months and if still elevated, could try Livalo which has been proven to show decreased risk of myalgias/arthralgias is at the discretion of his PCP * Lengthy discussion with patient and he does not seem to have underlying anxiety. I do not believe that this was a panic attack (2) Hypertension: * On lisinopril 40 mg PO daily, states BP has been high since May 2021, he has been rapidly increased from 5 mg to 40 mg lisinopril, BPs have run 200s/90s at home. * Lengthy review of BP log and he has had occasional hypotensive episodes * Suspect this is contributing greatly to his symptomatology * Lengthy discussion with patient regarding lisinopril and that it takes a good 2 to 4 weeks to see full benefit. He had a rapid increase from 5 to 40 mg over a 2-week timeframe * Would advise 20 mg daily with blood pressure monitoring. Follow-up with PCP (3) Electrocardiogram abnormal: * EKG in ED today showed evidence of inferior infarct, age undetermined, otherwise NSR. No previous EKGS are available for comparison. Patient does describe some abnormal chest sensation, difficult for him to determine if this is separate from the numbness/tingling sensation in his left arm and leg. * Troponin cycled and negative * Lipid panel obtained for stratificationsee above * A1c normal at 5.6 * Stress echocardiogram showing no evidence of ischemia but stopped prematurely due to fatigue * Was able to get a copy of patient's cardiac catheterization done by Dr. Farah within the past 5 years. He had angiographically normal coronary arteries with mild nonischemic cardiomyopathy and medical therapy was recommended at that time. Ideally would be on a beta-kaylene but his heart rate resting is 61. Would not tolerate that * - Plan of care discussed with attending provider who agrees with plan to discharged home today. Patient to follow-up with PCP. See discharge recommendations as outlined below. Total Time Total Time Spent Total Time Spent (In Minutes): 60 Discharge Plan Discharge Items Patient Disposition: Home - Self-Care Reason For Visit: LEFT SIDED NUMBNESS/WEAKNESS Discharge Diagnosis: 1. Near Syncope 2. Left Sided Weakness 3. ? TIA (Transischemic Attack)- "ministroke" Activity: Resume your previous activity Non-emergency contact: Primary Care Provider Call non-emergency contact if: you have any medication questions and your symptoms worsen Follow-up/Referrals: Mati Martinez, [Primary Care Provider] - Diet: Heart Healthy Addtl Attending Provider Instructions: Diet: Avoid fatty foods (recommend good fats such as fish). Avoid red meat. Again recommend white meats such as fish, chicken, pork. Activity: No restrictions. Do recommend weight loss Recommendations: - You were hospitalized with near syncope (a feeling of dizziness) and left- sided weakness - You did not have a stroke but your imaging does show some atherosclerotic disease in the vessels in your brain - I cannot say for certain that you did not have a mini stroke (TIA) - You do have underlying risk factors for cerebrovascular disease (being a male, genetics, hypertension, tobacco abuse) - I do believe the biggest contributing factor was the quick increase in your lisinopril - Would advise decreasing her lisinopril to 20 mg daily - Recommend taking enterically coated aspirin 81 mg daily - You are not tolerant to statin therapy. As discussed, strongly recommend dietary changes and weight loss --can perhaps try Livalo if you can not get your cholesterol under control with dietary changes. This is better tolerated for those who can not tolerate the other statins. - STRONGLY ENCOURAGE TOBACCO CESSATION/ STOP CHEWING!! This is the best - Follow-up with your PCP within 7 to 10 days - Return to the ED for any new or worsening symptoms Pending Studies at Discharge: No Stand-Alone Forms: [facility] [employer], Smoking Cessation Medications and DC Order Prescriptions: New aspirin 81 mg tablet,delayed release (DR/EC) 81 mg PO DAILY Qty: 30 RF: 0 lisinopril 20 mg tablet 20 mg PO DAILY Qty: 30 RF: 0 Continued ergocalciferol (vitamin D2) [Vitamin D2] 1,250 mcg (50,000 unit) capsule 50,000 unit PO 2XWK RF: 0 Discontinued lisinopril 40 mg tablet 40 mg PO QAM RF: 0 Discharge Orders: Discharge Order (Routine); Ordered 09/12/21 Ordered By: Khadijah Chatman Admission Data Admit Date/Time: 09/11/21 13:29 Attending Provider: Sebastian Blake Admit Provider: Michael Willis Primary Care Provider: Mati Martinez Other Providers: Nathan Villegas Other Interventions: Discharge Summary Assessment (RN) Last Done: 09/12/21 14:27 Supervising Physician Co-Signing Physician Notes Patient seen and examined, chart reviewed, case discussed with Juli chatman PA-C and I agree with the assessment and plan as above except as otherwise noted General: A&Ox3. NAD. Cooperative. HEENT: Atraumatic, normocephalic. Pulm: CTAB A&P. -wheezes, -rales, -rhonchi. Symmetrical chest rise. No increase work of breathing. No respiratory distress. Cardiac: RRR, -mrg. Radial pulses intact and symmetrical. Abdominal: Nontender, nondistended, soft. BS present. Neuro: no focal neuro deficits, CN II-XII intact without deficit. Labs and images reviewed 50yo M with TIA symptoms, no CVA appreciated on imaging. Risk factr management, agree with BP, statin, and ASA recommendations above. Patient strongly encouraged to cease tobacco use, and have close followup to PCP for statin review and lab work including LFTs/CK given past hx of intolerance. No focal deficits at d/c. Coding Level of Care Code 51292 OBS Care - Discharge Diagnoses Left sided numbness R20.0 Hypertension I10 Electrocardiogram abnormal R94.31
== END 2021-09-12 15:05 | disposition home or self-care (01) ==
LOC: 2N 10:37 → ED 10:37 → SUATTDRO 13:29 → 2N 14:51